=== PATIENT | male | born 1985 | race Two or more races ===

== ENCOUNTER 2022-10-27 12:22 | Inpatient (IN) | payer BC ==
[~2022-10-27] VITALS: Ht 175.3 cm; Wt 74.4 kg
== END 2022-10-29 10:04 | disposition home or self-care (01) | DRG 812 ==
LOC: ER 12:22 → MEDJ 22:24
PROVIDERS: ADMIT Internal Medicine; ATTEND Internal Medicine
PROC: BW21YZZ Computerized Tomography (CT Scan) of Abdomen and Pelvis using Other Contrast (ICD-10-PCS; 2022-10-27)
PROC: 30233N1 Transfusion of Nonautologous Red Blood Cells into Peripheral Vein, Percutaneous Approach (ICD-10-PCS; principal; 2022-10-28)
DX: D62 Acute posthemorrhagic anemia (principal); K62.5 Hemorrhage of anus and rectum; K64.8 Other hemorrhoids; Z20.822 Contact with and (suspected) exposure to COVID-19